=== PATIENT | male | born 1985 | race Caucasian/White ===

== ENCOUNTER 2019-10-24 09:35 | Emergency (ER) | payer OTHER ==
[~2019-10-24] VITALS: Ht 180.3 cm; Wt 115.2 kg
[2019-10-24] MEDS ORDERED: GLIPIZIDE XL10 MG PO (09:48)
[2019-10-24] MEDS ORDERED: ASPIR 8181 MG PO (09:48)
[2019-10-24] MEDS ORDERED: METFORMIN HCL1000 MG PO (09:48)
[2019-10-24] MEDS ORDERED: COZAAR100 MG PO (09:48)
[2019-10-24] MEDS ORDERED: LIPITOR20 MG PO (09:49)
== END 2019-10-24 14:16 | disposition home or self-care (01) ==
LOC: ER 09:35
DX: E11.65 Type 2 diabetes mellitus with hyperglycemia (principal)

== ENCOUNTER 2021-01-04 07:27 | Emergency (ER) | payer OTHER ==
[~2021-01-04] VITALS: Ht 180.3 cm; Wt 97.5 kg
[~2021-01-04 07:27] MED LIST: ASPIR 8181 MG PO; COZAAR100 MG PO; GLIPIZIDE XL10 MG PO; LIPITOR20 MG PO; METFORMIN HCL1000 MG PO
[2021-01-04] MEDS ORDERED: RYBELSUS7 MG (07:48)
[2021-01-04] MEDS ORDERED: VOLTAREN-XR100 MG PO (11:31)
[2021-01-04] MEDS ORDERED: SKELAXIN800 MG PO (11:31)
== END 2021-01-04 11:38 | disposition home or self-care (01) ==
LOC: ER 07:27
DX: M54.16 Radiculopathy, lumbar region (principal); M51.26 Other intervertebral disc displacement, lumbar region

== ENCOUNTER 2021-12-02 09:28 | Emergency (ER) | payer OTHER ==
[~2021-12-02] VITALS: Ht 180.3 cm; Wt 113.4 kg
[~2021-12-02 09:28] MED LIST changes: +RYBELSUS7 MG; +SKELAXIN800 MG PO; +VOLTAREN-XR100 MG PO
[2021-12-02] MEDS ORDERED: TRULICITY1.5 MG/0.5 SUBCUTANEO (09:52)
[2021-12-02] MEDS ORDERED: ATORVASTATIN CA20 MG PO (10:25)
[2021-12-02] MEDS ORDERED: HYDROXYZINE HCL25 MG PO (13:18)
== END 2021-12-02 13:22 | disposition home or self-care (01) ==
LOC: ER 09:28
DX: R07.9 Chest pain, unspecified (principal); F41.9 Anxiety disorder, unspecified; I10 Essential (primary) hypertension; E13.9 Other specified diabetes mellitus without complications

== ENCOUNTER 2022-01-23 08:07 | Emergency (ER) | payer OTHER ==
[~2022-01-23] VITALS: Ht 180.3 cm; Wt 111.1 kg
[~2022-01-23 08:07] MED LIST changes: +ATORVASTATIN CA20 MG PO; +HYDROXYZINE HCL25 MG PO; +TRULICITY1.5 MG/0.5 SUBCUTANEO
== END 2022-01-23 13:31 | disposition home or self-care (01) ==
LOC: ER 08:07
DX: R10.13 Epigastric pain (principal); I10 Essential (primary) hypertension; E11.9 Type 2 diabetes mellitus without complications; Z79.4 Long term (current) use of insulin; Z91.013 Allergy to seafood

== ENCOUNTER 2022-11-08 09:11 | Emergency (ER) | payer OTHER ==
[~2022-11-08] VITALS: Ht 180.3 cm; Wt 108.9 kg
[2022-11-08] MEDS ORDERED: ACIPHEX20 MG PO (09:20)
== END 2022-11-08 15:40 | disposition home or self-care (01) ==
LOC: ER 09:11
DX: B34.9 Viral infection, unspecified (principal); Z91.013 Allergy to seafood; E11.9 Type 2 diabetes mellitus without complications; Z79.84 Long term (current) use of oral hypoglycemic drugs; I10 Essential (primary) hypertension

== ENCOUNTER 2023-01-01 13:54 | Outpatient (CLI) | payer OTHER ==
[~2023-01-01 13:54] MED LIST changes: +ACIPHEX20 MG PO
== END 2023-01-01 13:58 | disposition home or self-care (01) ==
LOC: SONOGRAMA 13:54
PROVIDERS: ATTEND Specialist
DX: R10.13 Epigastric pain (principal); E11.9 Type 2 diabetes mellitus without complications; R12 Heartburn; R16.0 Hepatomegaly, not elsewhere classified; Z86.010 Personal history of colon polyps